=== PATIENT | male | born 1985 | race Two or more races ===

== ENCOUNTER 2017-03-02 03:50 | Emergency (ER) | payer SELFPAY ==
--- NOTE | ~2017-03-02 | EKG ---
PATIENT: RAMIRO SANTANA UNIT #: [id number] Ventricular Rate: 129 BPM Atrial Rate: 129 BPM P-R Interval: 150 ms QRS Duration: 90 ms Q-T Interval: 312 ms QTC Calculation(Bezet): 457 ms P [place]: 67 degrees Calculated R [place]: 78 degrees Calculated T [place]: 66 degrees Diagnosis Line: Sinus tachycardia Diagnosis Line: Otherwise normal ECG Diagnosis Line: No previous ECGs available Diagnosis Line: Confirmed by BETTY EL MD ([id number]) on Diagnosis Line: 03/12/2017 8:26:58 AM INTERPRETING MD: SIENNA GILLETTE
[2017-03-02 04:43] LABS: BASOPHIL% 0.5 % (0-2.5); EOSINOPHIL# 0.1 X10e3 (0-0.7); EOSINOPHIL% 0.9 % (0.0-7.0); HEMOGLOBIN 14.4 gm/dL (13.0-16.0); LYMPHOCYTE# 3.1 X10e3 (1.0-3.5); LYMPHOCYTE% 34.3 % (17.0-45.0); MEAN CELL VOLUME 72.3 FL (83-96); MEAN CORPUSCULAR HEMOGLOBIN 23.1 PG (28-34); MEAN CORPUSCULAR HGB CONC 31.9 g/dL (30-36); MEAN PLATELET VOLUME 9.5 FL (6.5-11.5); MONOCYTE# 0.7 X10e3 (0-1.0); MONOCYTE% 8.2 % (3.0-12.0); NEUTROPHIL# 5.1 X10e3 (1.5-7.1); NEUTROPHIL% 56.1 % (40-75); PLATELET COUNT 242 X10e3 (140-420); RED BLOOD COUNT 6.22 X10e (3.90-5.60); RED CELL DISTRIBUTION WIDTH 14.3 % (11.0-15.5)
[2017-03-02 04:44] LABS: DIFF IND NO
[2017-03-02 04:54] LABS: POC - CKMB <1.0 ng/mL (0.0-7.9); POC - TROPONIN <0.05 ng/mL (<=0.05)
[2017-03-02 04:58] LABS: BUN/CREATININE RATIO 17.5; CALCIUM SERUM 8.9 mg/dL (8.4-10.2); CREATININE SERUM 0.8 mg/dL (0.6-1.4); GLOM FILT RATE Estimated 119.1 mL/min (>60)
[2017-03-02 05:01] LABS: POTASSIUM 2.8 mmol/L (3.5-5.1)
[2017-03-02 05:15] LABS: AMPHETAMINE NEG (NEG); BARBITURATES NEG (NEG); BENZODIAZEPINES NEG (NEG); COCAINE NEG (NEG); MARIJUANA POS (NEG); OPIATES NEG (NEG); TRICYCLIC ANTIDEPRESSANTS NEG (NEG); U METHADONE NEG (NEG)
== END 2017-03-02 06:03 | disposition home or self-care (01) ==
LOC: SED 03:50
PROVIDERS: Emergency Medicine
DX: F41.9 Anxiety disorder, unspecified (principal); J45.909 Unspecified asthma, uncomplicated; F17.200 Nicotine dependence, unspecified, uncomplicated
CPT/HCPCS: 80048; 80307; 82553; 83735; 84484; 85025; 93005; 96361; 96374; 96375; 99284; G0480; J2060